=== PATIENT | male | born 1995 | race Caucasian/White ===

== ENCOUNTER 2018-01-19 14:48 | Outpatient (CLI) | payer OTHER ==
--- NOTE | 2018-01-20 00:20 | Ultrasound Report ---
Procedure Date: 01/19/2018 Accession Number: [id number] / [id number] Procedure: US - Duplex Ext Veins Bilateral CPT Code: FULL RESULT: EXAM: BILATERAL LOWER EXTREMITY VENOUS ULTRASOUND EXAM DATE: 01/19/2018 03:00 PM. CLINICAL HISTORY: Localized edema,peripheral vascular disease, unspecified. COMPARISON: None. TECHNIQUE: Real-time sonographic vascular imaging was performed by the skilled nursing professional through the lower extremities utilizing both color-flow and Doppler spectral analysis. Multiple media sales representative static images were saved for review. FINDINGS: Right: Common Femoral Vein (CFV): Normal. CFV-GSV Junction: Normal. Profunda Femoral Vein (PFV): Normal. Femoral Vein (FV) Prox: Normal. Femoral Vein (FV) Mid: Normal. Femoral Vein (FV) Dist: Normal. Popliteal Vein: Normal. Posterior Tibial Veins: Normal. Peroneal Veins: Normal. Left: Common Femoral Vein (CFV): Normal. CFV-GSV Junction: Normal. Profunda Femoral Vein (PFV): Normal. Femoral Vein (FV) Prox: Normal. Femoral Vein (FV) Mid: Normal. Femoral Vein (FV) Dist: Normal. Popliteal Vein: Normal. Posterior Tibial Veins: Normal. Peroneal Veins: Normal. Other: Posterior tibial and peroneal veins not well seen. Study limited due to body habitus. IMPRESSION: 1. Suboptimal visualization of the bilateral posterior tibial peroneal veins. Limitations related to body habitus. 2. Given the limitations, no evidence for deep venous thrombosis. RADIA
== END 2018-01-19 14:49 | disposition home or self-care (01) ==
LOC: DI 14:48
PROVIDERS: ATTEND Family Medicine
DX: I73.9 Peripheral vascular disease, unspecified (principal); R60.0 Localized edema; E66.01 Morbid (severe) obesity due to excess calories
CPT/HCPCS: 93970

== ENCOUNTER 2018-03-19 15:29 | Outpatient (CLI) | payer OTHER | END 2018-03-19 15:30 | disposition home or self-care (01) | LOC: SC 15:29 | PROVIDERS: ATTEND Internal Medicine Pulmonary Disease | DX: G47.30 Sleep apnea, unspecified (principal); R51 Headache; G47.10 Hypersomnia, unspecified; R06.83 Snoring; E66.01 Morbid (severe) obesity due to excess calories; Z68.45 Body mass index [BMI] 70 or greater, adult | CPT/HCPCS: 99203; 99212 ==

== ENCOUNTER 2020-12-28 03:00 | Emergency (ER) | payer SELFPAY ==
[2020-12-28] MEDS ORDERED: cephALEXin 250 MG CAPSULE PO STA (03:14)
[2020-12-28] MEDS ORDERED: diphenhydrAMINE 25 MG CAPSULE PO STA (03:14)
[2020-12-28] MEDS ORDERED: CETIRIZINE 10 MG TABLET PO STA (03:14)
--- NOTE | 2020-12-28 03:15 | ED Physician Documentation ---
PD HPI SKIN - Stated complaint Stated Complaint: CHILLS/RASH ON LEG - History obtained from History obtained from: Patient - History of Present Illness Timing - onset: Today Timing - details: Abrupt onset, Still present Location: RLE (he has had some itching on lower legs and has few small scratch reynolds. This morning awoke with redness and swelling right lower leg/calf. Feeling of chills. Denies URI symptoms. He states yesterday he did have some chest pressure but not now.) Quality / character: Painful, Discolored (redness in area of medial lower leg and calf. No edema noted in leg generally though is very obese and hard to tell.), Swelling. No: Draining Associated symptoms: No: Fever (but has feeling of chills this morning), Myalgi as, N/V/D Contributing factors: No: Insect bite /sting, Recent illness Similar symptoms before: Diagnosis (has had cellulitis of lower legs in the pas t.) Review of Systems Constitutional: reports: Chills. denies: Fever Nose: denies: Rhinorrhea / runny nose, Congestion Throat: denies: Sore throat Cardiac: reports: Chest pain / pressure (tightness feeling yesterday for part of the day). denies: Palpitations Respiratory: denies: Dyspnea, Cough GI: denies: Abdominal Pain, Nausea, Vomiting, Diarrhea Skin: reports: Abrasion (s) (several small scratch reynolds lower legs from itching.) PD PAST MEDICAL HISTORY - Past Medical History Cardiovascular: None Respiratory: None Neuro: None Endocrine/Autoimmune: None Musculoskeletal: Other (markedly obese) - Present Medications Home Medications: Ambulatory Orders Medication Instructions Recorded Confirmed Ibuprofen [Motrin] 600 mg PO TID PRN #25 tab 12/28/20 cephALEXin [Keflex] 1,000 mg PO TID 5 Days #30 cap 12/28/20 - Allergies Allergies/Adverse Reactions: Allergies Allergy/AdvReac Type Severity Reaction Status Date / Time malena seeds Allergy Anaphylaxis Uncoded 12/28/20 03:14 PD ED PE NORMAL - Vitals Vital signs reviewed: Yes - General General: Alert and oriented X 3, No acute distress, Well developed/nourished - Cardiac Cardiac: RRR, No murmur - Respiratory Respiratory: No respiratory distress, Clear bilaterally - Derm Derm: Normal color, Warm and dry - Extremities Extremities: Other (right anteromedial to posterior mid calf with area of warmth, redness, mild tender. Small scratch reynolds on anterior lower leg but not in the area of the redness per se. The obese skin is lifted to inspect all the folds and no excoriation nor skin breakdown is seen. ) - Neuro Neuro: Alert and oriented X 3, No motor deficit, No sensory deficit, Normal speech Results - Vitals Vitals: Vital Signs - 24 hr 12/28/20 12/28/20 12/28/20 03:06 04:27 04:35 Temperature 36.9 C 37.7 C Heart Rate 125 H 106 H Respiratory 28 H 24 Rate Blood Pressure 142/73 H 153/75 H O2 Saturation 99 99 Oxygen O2 Source Room air - EKG (time done) 03:24 Rate: Rate (enter#) (115) Rhythm: Sinus tachycardia [place]: Normal Intervals: Normal [place] QRS: Normal Ischemia: Normal ST segments. No: ST elevation c/w ischemia, ST depression - Labs Labs: Laboratory Tests 12/28/20 12/28/20 12/28/20 03:50 03:50 03:50 WBC 14.2 H RBC 4.34 L Hgb 11.8 L Hct 37.7 L MCV 86.9 MCH 27.2 MCHC 31.3 L RDW 14.1 Plt Count 270 MPV 9.1 Neut # (Auto) 12.1 H Lymph # (Auto) 1.4 L [place] # (Auto) 0.5 Eos # (Auto) 0.1 Baso # (Auto) 0.1 Absolute Nucleated RBC 0.00 Nucleated RBC % 0.0 Sodium 134 L Potassium 3.9 Chloride 100 L Carbon Dioxide 24 Anion Gap 10.0 BUN 16 Creatinine 0.8 Estimated GFR (MDRD) 117 Glucose 136 H Calcium 8.7 Total Bilirubin 0.8 AST 22 ALT 30 Alkaline Phosphatase 36 L Total Creatine Kinase 98 Troponin I High Sens 3.3 B-Natriuretic Peptide Total Protein 7.3 Albumin 3.7 Globulin 3.6 Albumin/Globulin Ratio 1.0 Lipase 24 12/28/20 03:50 WBC RBC Hgb Hct MCV MCH MCHC RDW Plt Count MPV Neut # (Auto) Lymph # (Auto) [place] # (Auto) Eos # (Auto) Baso # (Auto) Absolute Nucleated RBC Nucleated RBC % Sodium Potassium Chloride Carbon Dioxide Anion Gap BUN Creatinine Estimated GFR (MDRD) Glucose Calcium Total Bilirubin AST ALT Alkaline Phosphatase Total Creatine Kinase Troponin I High Sens B-Natriuretic Peptide 20 Total Protein Albumin Globulin Albumin/Globulin Ratio Lipase - Rads (name of study) chest xray Radiology: Prelim report reviewed (no acute process), See rad report PD MEDICAL DECISION MAKING - ED course Complexity details: reviewed results (He had had some chest pressure yesterday and was concerned. No signs of pneumonia, nor heart related. Has chills this morning with redness lower leg skin. Consider chills being unrelated infection rather than from the cellulitis. The leg does not seem out of proportionate pain/swelling.), re-evaluated patient (he is given 1 g dose of Keflex to compensate for body size. Had some chest tightness but not pleuritic nor dyspnea. calf redness anteromedial, with surface tender, and does not have DVT character. ), considered differential (skin redness and local warmth/tender c/w cellulitis. Mild elevated WBC. Normal CK so no signs of muscle layer extension. Some tachycardia initially, decreased to 106, so still some tachy. Not sure what his baseline is. The area leg redness appears cellulitic, not deeper. ), d/w patient Departure - Departure Disposition: 01 Home, Self Care Clinical Impression: Lower extremity cellulitis Qualifiers: Laterality: right Qualified Code(s): L03.115 - Cellulitis of right lower limb Chest pain Qualifiers: Chest pain type: unspecified Qualified Code(s): R07.9 - Chest pain, unspecified Condition: Stable Record reviewed to determine appropriate education?: Yes Instructions: ED Infec Skin Cellulitis Prescriptions: cephALEXin [Keflex] 1,000 mg PO TID 5 Days #30 cap Ibuprofen [Motrin] 600 mg PO TID PRN #25 tab PRN Reason: Pain Comments: The redness and swelling along with your symptoms of feeling chilled and having an elevated white count suggest an infectious process. Use cephalexin 2 tablets 3 times a day for the next 5 days. Warm towels or compresses or soaks for the lower leg periodically to improve blood flow to the area. Ibuprofen 3 times a day for inflammation and pain. To that add Tylenol if needed. Recheck if not improved well over the next 2 to 3 days and return to the ER if worsening general symptoms. The prescriptions were sent to [facility]. Discharge Date/Time: 12/28/20 04:58
[2020-12-28 03:57] LABS: BASOPHILS # (AUTO) 0.1 10^3/uL (0.0-0.1); BASOPHILS % (AUTO) 0.4 %; EOSINOPHILS # (AUTO) 0.1 10^3/uL (0.0-0.7); EOSINOPHILS % (AUTO) 0.8 %; HCT - HEMATOCRIT 37.7 % (42.0-52.0); HGB - HEMOGLOBIN 11.8 g/dL (14.0-18.0); LYMPHOCYTES # (AUTO) 1.4 10^3/uL (1.5-3.5); LYMPHOCYTES % (AUTO) 9.6 %; MEAN CORPUSCULAR HEMOGLOBIN 27.2 pg (27.0-31.0); MEAN CORPUSCULAR HGB CONC 31.3 g/dL (32.0-36.0); MEAN CORPUSCULAR VOLUME 86.9 fL (80.0-94.0); MEAN PLATELET VOLUME 9.1 fL (7.4-11.4); MONOCYTES # (AUTO) 0.5 10^3/uL (0.0-1.0); MONOCYTES % (AUTO) 3.5 %; NEUTROPHILS # (AUTO) 12.1 10^3/uL (1.5-6.6); NEUTROPHILS % (AUTO) 85.2 %; PLT - PLATELET COUNT 270 10^3/uL (130-450); RED BLOOD COUNT 4.34 10^6/uL (4.70-6.10); RED CELL DISTRIBUTION WIDTH 14.1 % (12.0-15.0); WHITE BLOOD COUNT 14.2 x10^3/uL (4.8-10.8)
[2020-12-28 04:10] LABS: ALBUMIN 3.7 g/dL (3.2-5.5); BILIRUBIN,TOTAL 0.8 mg/dL (0.2-1.0); CREATININE 0.8 mg/dL (0.6-1.2); TOTAL PROTEIN 7.3 g/dL (6.7-8.2)
[2020-12-28 04:14] LABS: CALCIUM 8.7 mg/dL (8.5-10.3); POTASSIUM 3.9 mmol/L (3.5-5.0)
[2020-12-28 04:28] VITALS: BP 153/75
[2020-12-28] MEDS ORDERED: HYDROcod/ACETAM 5/325 MG TABLET PO STA (04:43)
[2020-12-28] MEDS ORDERED: IBUPROFEN 600 MG TABLET PO STA (04:43)
--- NOTE | 2020-12-28 08:06 | XRAY Report ---
PROCEDURE: Chest 1 View X-Ray INDICATIONS: Chest pain TECHNIQUE: One view of the chest was acquired. COMPARISON: None FINDINGS: Surgical changes and devices: None. Lungs and pleura: No pleural effusions or pneumothorax. Lungs are clear. Mediastinum: Mediastinal contours appear normal. Heart size is normal. Bones and chest wall: No suspicious bony lesions. Overlying soft tissues appear unremarkable. IMPRESSION: No acute cardiopulmonary process demonstrated radiographically. No significant change from preliminar y report. Reviewed by: Johnny Bell MD on 12/28/2020 8:05 AM PDT Approved by: Johnny Bell MD on 12/28/2020 8:05 AM PDT Station ID: [id number]
== END 2020-12-28 04:58 | disposition home or self-care (01) ==
LOC: ED 03:00
DX: L03.115 Cellulitis of right lower limb (principal); R07.89 Other chest pain; R00.0 Tachycardia, unspecified; E66.9 Obesity, unspecified; Z68.45 Body mass index [BMI] 70 or greater, adult
CPT/HCPCS: 36415; 71045; 80053; 82550; 83690; 83880; 84484; 85025; 93005; 99284; A9270

== ENCOUNTER 2021-01-03 18:36 | Inpatient (IN) | payer BC ==
[2021-01-03 19:33] LABS: BASOPHILS # (AUTO) 0.1 10^3/uL (0.0-0.1); BASOPHILS % (AUTO) 0.4 %; EOSINOPHILS # (AUTO) 0.1 10^3/uL (0.0-0.7); EOSINOPHILS % (AUTO) 0.3 %; HCT - HEMATOCRIT 37.7 % (42.0-52.0); HGB - HEMOGLOBIN 12.1 g/dL (14.0-18.0); LYMPHOCYTES % (AUTO) 5.2 %; MEAN CORPUSCULAR HEMOGLOBIN 27.4 pg (27.0-31.0); MEAN CORPUSCULAR HGB CONC 32.1 g/dL (32.0-36.0); MEAN CORPUSCULAR VOLUME 85.3 fL (80.0-94.0); MEAN PLATELET VOLUME 8.9 fL (7.4-11.4); MONOCYTES # (AUTO) 0.4 10^3/uL (0.0-1.0); NEUTROPHILS # (AUTO) 17.8 10^3/uL (1.5-6.6); NEUTROPHILS % (AUTO) 91.4 %; PLT - PLATELET COUNT 339 10^3/uL (130-450); RED BLOOD COUNT 4.42 10^6/uL (4.70-6.10); RED CELL DISTRIBUTION WIDTH 13.7 % (12.0-15.0); WHITE BLOOD COUNT 19.5 x10^3/uL (4.8-10.8)
[2021-01-03 19:37] LABS: INR 1.3 (0.8-1.2); PT - PROTHROMBIN TIME 14.4 secs (9.9-12.6)
[2021-01-03 19:44] LABS: ALBUMIN 3.5 g/dL (3.2-5.5); ALBUMIN/GLOBULIN RATIO 0.9 (1.0-2.2); BILIRUBIN,TOTAL 0.9 mg/dL (0.2-1.0); POTASSIUM 3.9 mmol/L (3.5-5.0); TOTAL PROTEIN 7.5 g/dL (6.7-8.2)
[2021-01-03 19:45] LABS: PARTIAL THROMBOPLASTIN TIME 30.6 secs (24.9-33.3)
--- NOTE | 2021-01-03 20:42 | ED Physician Documentation ---
History of Present Illness - Stated complaint Stated Complaint: R LEG PX - Chief complaint Chief Complaint: Ext Problem - History obtained from History obtained from: Patient, Family - History of Present Illness Timing: How many weeks ago (1) Pain level max: 5 Pain level now: 5 - Additonal information Additional information: 25-year-old male presents to the emergency department the redness and swelling to the right lower extremity x1 week. He was placed on Keflex for 5 days, the redness did start to improve, but has now worsened again. Temperature of 102 at home. He has having pain throughout the leg as well. Does not recall any specific injury, however this did start after he was swimming in a pool. Review of Systems Constitutional: denies: Fever, Chills Cardiac: denies: Chest pain / pressure GI: denies: Vomiting, Diarrhea Skin: denies: Rash Musculoskeletal: denies: Neck pain, Back pain Neurologic: reports: Headache (Gradual onset, holoacranial). denies: Focal weakness, Numbness PD PAST MEDICAL HISTORY - Past Medical History Cardiovascular: None Respiratory: None Neuro: None Endocrine/Autoimmune: None Musculoskeletal: Other (markedly obese) - Past Surgical History Past Surgical History: No - Present Medications Home Medications: Ambulatory Orders Medication Instructions Recorded Confirmed No Known Home Medications 01/03/21 01/03/21 - Allergies Allergies/Adverse Reactions: Allergies Allergy/AdvReac Type Severity Reaction Status Date / Time malena seeds Allergy Anaphylaxis Uncoded 01/03/21 18:50 - Social History Does the pt smoke?: No Smoking Status: Never smoker Does the pt drink ETOH?: No Does the pt have substance abuse?: No - Immunizations Immunizations are current?: Yes - POLST Patient has POLST: No PD ED PE NORMAL - Vitals Vital signs reviewed: Yes - General General: Alert and oriented X 3, No acute distress, Other (Super morbidly obese) - HEENT HEENT: PERRL, Moist mucous membranes, Pharynx benign - Neck Neck: Supple, no meningeal sign - Cardiac Cardiac: RRR - Respiratory Respiratory: No respiratory distress, Clear bilaterally - Abdomen Abdomen: Soft, Non tender, Non distended - Derm Derm: Warm and dry - Extremities Extremities: Other (Swelling to the bilateral lower extremities, right greater than left. RLE - erythema from the posterior superior thigh down to the ankle. The foot does not appear swollen and erythematous. There is no drainable abscess. No drainage. Neurovascular intact) - Neuro Neuro: Alert and oriented X 3 - Psych Psych: Normal mood, Normal affect Results - Vitals Vitals: Vital Signs - 24 hr 01/03/21 01/03/21 01/03/21 18:50 19:22 20:48 Temperature 36.5 C 38.9 C H 37 C Heart Rate 120 H 104 H Respiratory 20 18 Rate Blood Pressure 146/85 H 131/74 H O2 Saturation 96 100 Oxygen O2 Source Room air - Labs Labs: Laboratory Tests 01/03/21 01/03/21 01/03/21 19:26 19:26 19:26 WBC 19.5 H RBC 4.42 L Hgb 12.1 L Hct 37.7 L MCV 85.3 MCH 27.4 MCHC 32.1 RDW 13.7 Plt Count 339 MPV 8.9 Neut # (Auto) 17.8 H Lymph # (Auto) 1.0 L [place] # (Auto) 0.4 Eos # (Auto) 0.1 Baso # (Auto) 0.1 Absolute Nucleated RBC 0.00 Nucleated RBC % 0.0 PT 14.4 H INR 1.3 H APTT 30.6 Sodium 135 Potassium 3.9 Chloride 99 L Carbon Dioxide 26 Anion Gap 10.0 BUN 14 Creatinine 1.0 Estimated GFR (MDRD) 90 Glucose 129 H Lactic Acid Calcium 9.0 Total Bilirubin 0.9 AST 23 ALT 37 Alkaline Phosphatase 33 L Total Protein 7.5 Albumin 3.5 Globulin 4.0 Albumin/Globulin Ratio 0.9 L Lipase 26 Nasal Adenovirus (PCR) Nasal B. parapertussis DNA (PCR) Nasal Coronavir 229E PCR Nasal Coronavir HKU1 PCR Nasal Coronavir NL63 PCR Nasal Coronavir OC43 PCR Nasal Enterovir/Rhinovir PCR Nasal Influenza B PCR Nasal Influenza A PCR Nasal Parainfluen 1 PCR Nasal Parainfluen 2 PCR Nasal Parainfluen 3 PCR Nasal Parainfluen 4 PCR Nasal RSV (PCR) Nasal B.pertussis DNA PCR Nasal C.pneumoniae (PCR) Sunil Human Metapneumo PCR Nasal M.pneumoniae (PCR) Nasal SARS-CoV-2 (PCR) 01/03/21 01/03/21 19:26 21:10 WBC RBC Hgb Hct MCV MCH MCHC RDW Plt Count MPV Neut # (Auto) Lymph # (Auto) [place] # (Auto) Eos # (Auto) Baso # (Auto) Absolute Nucleated RBC Nucleated RBC % PT INR APTT Sodium Potassium Chloride Carbon Dioxide Anion Gap BUN Creatinine Estimated GFR (MDRD) Glucose Lactic Acid 1.3 Calcium Total Bilirubin AST ALT Alkaline Phosphatase Total Protein Albumin Globulin Albumin/Globulin Ratio Lipase Nasal Adenovirus (PCR) NOT DETECTED Nasal B. parapertussis DNA (PCR) NOT DETECTED Nasal Coronavir 229E PCR NOT DETECTED Nasal Coronavir HKU1 PCR NOT DETECTED Nasal Coronavir NL63 PCR NOT DETECTED Nasal Coronavir OC43 PCR NOT DETECTED Nasal Enterovir/Rhinovir PCR NOT DETECTED Nasal Influenza B PCR NOT DETECTED Nasal Influenza A PCR NOT DETECTED Nasal Parainfluen 1 PCR NOT DETECTED Nasal Parainfluen 2 PCR NOT DETECTED Nasal Parainfluen 3 PCR NOT DETECTED Nasal Parainfluen 4 PCR NOT DETECTED Nasal RSV (PCR) NOT DETECTED Nasal B.pertussis DNA PCR NOT DETECTED Nasal C.pneumoniae (PCR) NOT DETECTED Sunil Human Metapneumo PCR NOT DETECTED Nasal M.pneumoniae (PCR) NOT DETECTED Nasal SARS-CoV-2 (PCR) NOT DETECTED PD MEDICAL DECISION MAKING - ED course Complexity details: reviewed results, re-evaluated patient, considered darin antonio, d/w patient ED course: Patient with significant cellulitis of the right lower extremity. Febrile, tachycardic, leukocytosis. Initial white blood cell count was 14 at his last visit, over 19 today. Blood cultures drawn. Lactate drawn. No hypotension. He was given IV fluids. 30 mL/kg were not given as there was no hypotension and due to his body mass. Given IV antibiotics. Discussed the case with Dr. Loja, hospitalist who accepts This document was made in part using voice recognition software. While efforts are made to proofread this document, sound alike and grammatical errors may occur. Departure - Departure Disposition: [facility] DC/Xfer Clinical Impression: Fever Qualifiers: Fever type: unspecified Qualified Code(s): R50.9 - Fever, unspecified Cellulitis Qualifiers: Site of cellulitis: extremity Site of cellulitis of extremity: lower extremity Laterality: right Qualified Code(s): L03.115 - Cellulitis of right lower limb Sepsis Qualifiers: Sepsis type: sepsis due to unspecified organism Sepsis acute organ dysfunction status: unspecified Qualified Code(s): A41.9 - Sepsis, unspecified organism Condition: Good Discharge Date/Time: 01/03/21 21:52
[2021-01-03] MEDS ORDERED: VANCOMYCIN IV STA (20:43)
[2021-01-03] MEDS ORDERED: AMPICILLIN/SULBACTAM 3 GM in SODIUM CHLORIDE 0.9% MINIBAG 100 ML IV STA (20:43)
[2021-01-03] MEDS ORDERED: SODIUM CHLORIDE 0.9% IV STA (20:43)
[2021-01-03] MEDS ORDERED: HYDROmorphone 1 MG/ML CARPUJECT IVP STA (21:11)
[2021-01-03] MEDS ORDERED: ONDANSETRON 4 MG/2 ML VIAL IVP PRN (21:11)
[2021-01-03] MEDS ORDERED: SODIUM CHLORIDE FLUSH 0.9% 10 ML SYRINGE IVP PRN (21:11)
--- NOTE | 2021-01-03 21:18 | HISTORY & PHYSICAL EXAMINATION ---
Chief Complaint - Chief Complaint Chief Complaint: Leg pain, fever and spreading leg redness History of Present Illness - Admitted From Admitted From:: ED - History Obtained From History obtained from: ED provider and patient - History of Present Illness HPI Comment/Other: This is a 25-year-old white male with history of morbid obesity (weight > 500 lbs, BMI is 85), who developed Right leg redness and swelling after swimming in a community pool and hot tub. He came to this ER 1 week ago with complaints of 2 days of right leg swelling and redness and was diagnosed with cellulitis and discharged from the ED on Keflex. The area got better and he finished his 5-day course of Keflex. One day later, the redness started spreading again and he has had fever spikes daily as high as 102 F. He presented to the ED again today with the complaint of worsening symptoms and today is found to have elevated white count of 20, is tachycardic with a heart rate of 120, has normal lactic acid level and normal blood pressure. He is being admitted for management of worsening cellulitis, failing outpatient Keflex oral therapy. He received Unasyn IV and vancomycin IV in the ED. History - Past Medical History Cardiovascular: reports: None Respiratory: reports: None Neuro: reports: None Endocrine/Autoimmune: reports: None Musculoskeletal: reports: Other (markedly obese) Derm: reports: Other (Leg edema for years, treated with Lasix until it ran out and he has not had a PCP for 2 years.) Other Past Medical History: Cellulitis at age 11. Morbid obesity since childhood. - Family & Social History Family History: Mother: Alive and Well, Father: Alive and Well, Diabetes, Type 2, Obesity, Sister: Alive and Well, Obesity, Brother: Alive and Well, Obesity Living arrangement: At home Living Situation: With spouse/s.o. (He lives with his fiancee) Social History Notes: He never smoked cigarettes, hardly drinks any alcohol, and no history of drug use. 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 - Substance History Use: Uses substance without health or social issues: NONE - POLST Patient has POLST: No Meds/Allgy - Home Medications Home Medications: Ambulatory Orders Medication Instructions Recorded Confirmed No Known Home Medications 01/03/21 01/03/21 - Allergies Allergies/Adverse Reactions: Allergies Allergy/AdvReac Type Severity Reaction Status Date / Time malena seeds Allergy Anaphylaxis Uncoded 01/03/21 18:50 Review of Systems - Constitutional Constitutional: reports: Fever - Integumentary Integumentary: reports: Other (swelling and redness of R leg. Skin of shins will occaisionally weep fluid for years.) - Neurological Neurological: reports: Headache (today) - All Other Systems All Other Systems: reports: Reviewed and negative Exam - Vital Signs Reviewed Vital Signs: Yes Vital Signs: Vital Signs x48h Temp Pulse Resp BP Pulse Ox 01/03/21 20:48 37 C 104 H 18 131/74 H 100 01/03/21 19:22 38.9 C H 01/03/21 18:50 36.5 C 120 H 20 146/85 H 96 - Physical Exam General Appearance: positive: No acute distress, Alert, Other (Morbidly obese) Eyes Bilateral: positive: Normal inspection, EOMI ENT: positive: ENT inspection nml, No signs of dehydration Neck: positive: Nml inspection (Cannot evaluate neck due to morbid obesity) Cardiovascular: positive: Regular rate & rhythm, No murmur (Distant heart sounds due to morbid obesity) Abdomen: positive: Non-tender, Nml bowel sounds, Other (Obese with pannus) Skin: positive: Warm, Dry Extremities: positive: Other (3+ edema to groin. R martinez and medial thigh red and swollen) Neurologic/Psychiatric: positive: Oriented x3 (Non-focal.) Sepsis Event Note (H) - Evaluation Current Stage of Sepsis: Sepsis Possible source of Sepsis: positive: Skin/soft tissue - Sepsis Criteria Sepsis Criteria: Recorded Temperature greater than 38.3C or Less than 36C, Recorded Heart Rate greater than 90 bpm, WBC count greater than 12,000 or less than 4000 Conclusion/Plan - Problem List (1) Sepsis Conclusion/Plan: Will continue with IV fluids for the nexrt 24 hours. Continue with IV antibiotics using Unasyn and vancomycin. Outline the area and follow its progression on the right leg. Await blood culture results. Follow CBC daily. Qualifiers: Sepsis type: sepsis due to unspecified organism Sepsis acute organ dysfunction status: unspecified Qualified Code(s): A41.9 - Sepsis, unspecified organism (2) Lower extremity cellulitis Conclusion/Plan: He thinks a skin opening occurred initially when he was in the hot tub. Also, due to chronic longstanding leg edema, he gets "skin openings" when the legs sometimes ooze liquid. We will continue with IV antibiotics, IV fluids, await blood culture results, outline the area and follow its progression, Follow ESR and WBC daily. Qualifiers: Laterality: right Qualified Code(s): L03.115 - Cellulitis of right lower limb (3) Morbid obesity with BMI of 70 and over, adult Conclusion/Plan: As per Hx. He reports his A1c has always been normal when tested. The patient admitted that he stopped dieting 2 years ago. He has now started going to the gym, walking daily and does intermittent fasting, eats between noon and 8pm only). (4) Leg edema Conclusion/Plan: Will resume his old dose of Lasix 20 mg daily and order leg elevation to help drain legs. Will obtain Echo (with Definity) to evaluate for Cor Pulmonale, which he may have from Obesity-Hypoventilation syndrome. - Lab Results Lab results reviewed: Yes Fish Bones: 01/03/21 19:26 01/03/21 19:26
[2021-01-03] MEDS ORDERED: SODIUM CHLORIDE 0.9% 1,000 ML IV SCH (22:00)
[2021-01-03 22:12] LABS: B. PARAPERTUSSIS- RESP PCR PAN NOT DETECTED; B. PERTUSSIS- RESP PCR PANEL NOT DETECTED; C. PNEUMONIAE- RESP PCR PANEL NOT DETECTED; CORONAVIRUS 229E-RESP PCR NOT DETECTED; CORONAVIRUS HKU1-RESP PCR NOT DETECTED; CORONAVIRUS NL63-RESP PCR NOT DETECTED; CORONAVIRUS OC43-RESP PCR NOT DETECTED; HUMAN METAPNEUMOVIRUS NOT DETECTED; INFLUENZA A- RESP PCR PANEL NOT DETECTED; INFLUENZA B - RESP PCR PANEL NOT DETECTED; M. PNEUMONIAE- RESP PCR PANEL NOT DETECTED; PARAINFLUENZA VIRUS 1 NOT DETECTED; PARAINFLUENZA VIRUS 2 NOT DETECTED; PARAINFLUENZA VIRUS 3 NOT DETECTED; PARAINFLUENZA VIRUS 4 NOT DETECTED; RHINOVIRUS/ENTEROVIRUS NOT DETECTED; RSV- RESP PCR PANEL NOT DETECTED; SARS-CoV-2 -RESP PCR PANEL NOT DETECTED
[2021-01-03] MEDS ORDERED: VANCOMYCIN INJ 3 GM in SODIUM CHLORIDE 0.9% 500 ML IV ONE (23:00)
[2021-01-03] MEDS: AMPICILLIN/SULBACTAM 3 GM in SODIUM CHLORIDE 0.9% MINIBAG 100 ML IV SCH (23:27)
[2021-01-03] MEDS: IBUPROFEN 600 MG TABLET PO PRN (23:29)
[2021-01-04 00:56] LABS: BILIRUBIN,URINE NEGATIVE (NEGATIVE); GLUCOSE, URINE (UA) NEGATIVE (NEGATIVE); KETONES,URINE (UA) NEGATIVE (NEGATIVE); LEUKOCYTE ESTERASE, URINE NEGATIVE (NEGATIVE); NITRITE,URINE NEGATIVE (NEGATIVE); OCCULT BLOOD,URINE NEGATIVE (NEGATIVE); PROTEIN,URINE NEGATIVE (NEGATIVE); UROBILINOGEN,URINE 0.2 (NORMAL) E.U./dL (NORMAL)
[2021-01-04 00:59] LABS: CLARITY,URINE CLEAR (CLEAR)
[2021-01-04] MEDS: SODIUM CHLORIDE FLUSH 0.9% 10 ML SYRINGE IVP SCH ×3 (01:13→17:22)
[2021-01-04 05:26] LABS: BASOPHILS % (AUTO) 0.3 %; EOSINOPHILS # (AUTO) 0.2 10^3/uL (0.0-0.7); EOSINOPHILS % (AUTO) 1.3 %; HCT - HEMATOCRIT 33.8 % (42.0-52.0); HGB - HEMOGLOBIN 10.6 g/dL (14.0-18.0); LYMPHOCYTES # (AUTO) 2.1 10^3/uL (1.5-3.5); MEAN CORPUSCULAR HGB CONC 31.4 g/dL (32.0-36.0); MEAN PLATELET VOLUME 9.2 fL (7.4-11.4); MONOCYTES # (AUTO) 0.7 10^3/uL (0.0-1.0); MONOCYTES % (AUTO) 4.8 %; NEUTROPHILS % (AUTO) 77.8 %; PLT - PLATELET COUNT 280 10^3/uL (130-450); RED BLOOD COUNT 3.93 10^6/uL (4.70-6.10); WHITE BLOOD COUNT 14.1 x10^3/uL (4.8-10.8)
[2021-01-04 05:34] LABS: CALCIUM 8.6 mg/dL (8.5-10.3); CREATININE 0.9 mg/dL (0.6-1.2); POTASSIUM 3.6 mmol/L (3.5-5.0)
[2021-01-04] MEDS: AMPICILLIN/SULBACTAM 3 GM in SODIUM CHLORIDE 0.9% MINIBAG 100 ML IV SCH ×3 (05:43→17:58)
[2021-01-04] MEDS: FUROSEMIDE 20 MG TABLET PO SCH (08:34)
[2021-01-04] MEDS: ACETAMINOPHEN 325 MG TABLET PO PRN ×2 (08:34→15:42)
[2021-01-04] MEDS: HYDROmorphone 0.5 MG/0.5 ML SYRINGE IVP PRN ×3 (08:34→17:26)
[2021-01-04] MEDS ORDERED: ENOXAPARIN 40 MG/0.4 ML SYRINGE SUBQ SCH (09:00)
[2021-01-04] MEDS ORDERED: VANCOMYCIN INJ 2 GM in SODIUM CHLORIDE 0.9% 500 ML IV ONE (10:00)
[2021-01-04 10:35] LABS: ESTIMATED AVERAGE GLUCOSE 123 mg/dL (70-100); HEMOGLOBIN A1c% 5.9 % (4.27-6.07)
[2021-01-04] MEDS: ENOXAPARIN 40 MG/0.4 ML SYRINGE SUBQ SCH ×2 (10:44→21:32)
--- NOTE | 2021-01-04 12:43 | PHARMACY PROGRESS NOTE ---
- Therapy Status Therapy status: Awaiting steady state Basis for treatment: Empirical (Failed outpatient treatment with Keflex) Treatment indication: Sepsis, cellulitis Trough goal: 15-20 Concurrent antibiotics: Unasyn 3 gm IV q6h - PRATIK Risk Risk level for Acute Kidney Injury: High Acute Kidney Injury risk factors: Wt >100kg or BMI >40, Goal trough >15, Total daily Vancomycin >4 grams, Sepsis - Monitoring and Recommendation Clinical response to treatment: I&O Previous 24 hours 01/02/21 01/03/21 01/04/21 23:59 23:59 23:59 Intake Total 100 2607 Output Total 0 400 Balance 100 2207 Lab Results 01/04/21 01/04/21 01/03/21 05:11 05:11 19:26 ESR 59 H BUN 15 14 Creatinine 0.9 1.0 Estimated GFR (MDRD) 102 90 Monitoring plan: Daily serum creatinine, Draw trough early (Given patient's BMI, will draw an early trough prior to 2nd maintenance dose to ensure level is not supratherapeutic. Then plan for true maintenance trough tomorrow.), Suggest ongoing fluid replacement Next trough due (date/time): 01/04 at 1730 Areas for additional monitoring: IV to PO when appropriate, Therapy de- escalation based on culture results
--- NOTE | 2021-01-04 14:24 | PROVIDER PROGRESS NOTE ---
Assessment/Plan - Problem List (1) Sepsis Qualifiers: Sepsis type: sepsis due to unspecified organism Sepsis acute organ dysfunction status: unspecified Qualified Code(s): A41.9 - Sepsis, unspecified organism Assessment/Plan: 01/04 Patient present fever, tachycardia, significantly elevated WBC at admission with right lower extremity cellulitis. Improved, erythema is a slightly reduce, warmth is significantly reduce, WBC reduce, tachycardia is resolved. We will continue antibiotics Unasyn and vancomycin, blood culture is pending. Add probiotics. Continue laboratory and vital signs monitor (2) Lower extremity cellulitis Conclusion/Plan: 01/04, There is no open skin injury now After assessment. Erythema, warmness, swelling are all reduced, WBC is reduced. We will continue with antibiotics. Encourage patient safely walk (3) Morbid obesity with BMI of 70 and over, adult Conclusion/Plan: As per Hx. Encourage patient continue lost of weight and safely walk, And exercise as tolerated. A1c is at normal arrange. (4) Lymphedema Conclusion/Plan: This is patient chronic condition. Encourage patient continue lost of weight and safely walk, And exercise as tolerated. Will obtain Echo (with Definity) to evaluate for Cor Pulmonale, which he may have from Obesity-Hypoventilation syndrome. - Current Meds Current Meds: Current Medications Generic Name Dose Route Start Last Admin Trade Name Freq PRN Reason Stop Dose Admin Acetaminophen 650 mg 01/03/21 21:15 01/04/21 08:34 Acetaminophen 325 Mg Tablet PO 650 mg Q4HR PRN Administration Pain or Fever > 38C (100.4F) Enoxaparin Sodium 40 mg 01/04/21 10:05 01/04/21 10:44 Enoxaparin 40 Mg/0.4 Ml Syringe SUBQ 40 mg Q12H CORNELIA Administration Furosemide 20 mg 01/04/21 09:00 01/04/21 08:34 Furosemide 20 Mg Tablet PO 20 mg DAILY CORNELIA Administration Hydromorphone HCl 0.5 mg 01/03/21 21:11 01/04/21 13:28 Hydromorphone 0.5 Mg/0.5 Ml Syringe IVP 0.5 mg Q8H PRN Administration Pain 8 to 10 Sodium Chloride 1,000 mls @ 60 mls/hr 01/03/21 22:00 01/04/21 13:51 Normal Saline 0.9% IV 01/04/21 14:39 60 mls/hr .[id number] CORNELIA Infusion Ampicillin Sodium/Sulbactam 100 mls @ 200 mls/hr 01/04/21 00:00 01/04/21 13:57 Sodium 3 gm/ Sodium Chloride IV Infused Q6HR CORNELIA Infusion Ibuprofen 600 mg 01/03/21 23:09 01/03/21 23:29 Ibuprofen 600 Mg Tablet PO 600 mg Q6HR PRN Administration HEADACHE Sodium Chloride 10 ml 01/04/21 01:00 01/04/21 08:34 Sodium Chloride Flush 0.9% 10 Ml Syringe IVP Not Given 0100,0900,1700 CORNELIA - Lab Result Fish Bone Diagrams: 01/04/21 05:11 01/04/21 05:11 - Additional Planning My Orders: My Active Orders 01/04/21 17:00 Saccharomyces Boulardii [Florastor] 250 mg PO BIDWM Subjective - Subjective Patient Reports: Feeling Better Objective Vital Signs: Vital Signs - 24 hr 01/03/21 01/03/21 01/03/21 18:50 19:22 20:48 Temperature 36.5 C 38.9 C H 37 C Heart Rate 120 H 104 H Heart Rate [ Brachial] Respiratory 20 18 Rate Blood Pressure 146/85 H 131/74 H Blood Pressure [Right Radial artery] O2 Saturation 96 100 01/03/21 01/03/21 01/03/21 21:51 22:09 23:49 Temperature 36.8 C 37.1 C Heart Rate 101 H Heart Rate [ 116 H 108 H Brachial] Respiratory 16 20 20 Rate Blood Pressure 114/61 Blood Pressure 132/61 H 131/61 H [Right Radial artery] O2 Saturation 99 99 97 01/04/21 08:00 Temperature 36.3 C L Heart Rate Heart Rate [ 78 Brachial] Respiratory 18 Rate Blood Pressure Blood Pressure 109/55 L [Right Radial artery] O2 Saturation 99 Oxygen O2 Source Room air I&O (Last 24 Hrs): Intake and Output Totals x24h 01/02/21 01/03/21 01/04/21 23:59 23:59 23:59 Intake Total 100 3427 Output Total 0 400 Balance 100 3027 General: Alert, Oriented x3, Cooperative, No acute distress HEENT: Atraumatic Neck: Supple Lymphatic: no adenopathy Neuro: Alert, Non Focal, Oriented Times 3 Cardiovascular: Regular rate, Normal S1, Normal S2 Respiratory: Chest non-tender, No respiratory distress Abdomen: Normal bowel sounds, Soft Extremities: Normal pulses, Other (Bilateral lower extremity with lymphedema. Right lower extremity with erythema, slightly warmth, slightly swelling. No calf tenderness or pain) - Results Results: Laboratory Results WBC 14.1 x10^3/uL (4.8-10.8) H 01/04/21 05:11 RBC 3.93 10^6/uL (4.70-6.10) L 01/04/21 05:11 Hgb 10.6 g/dL (14.0-18.0) L 01/04/21 05:11 Hct 33.8 % (42.0-52.0) L 01/04/21 05:11 MCV 86.0 fL (80.0-94.0) 01/04/21 05:11 MCH 27.0 pg (27.0-31.0) 01/04/21 05:11 MCHC 31.4 g/dL (32.0-36.0) L 01/04/21 05:11 RDW 14.0 % (12.0-15.0) 01/04/21 05:11 Plt Count 280 10^3/uL (130-450) 01/04/21 05:11 MPV 9.2 fL (7.4-11.4) 01/04/21 05:11 Neut # (Auto) 11.0 10^3/uL (1.5-6.6) H 01/04/21 05:11 Lymph # (Auto) 2.1 10^3/uL (1.5-3.5) 01/04/21 05:11 [place] # (Auto) 0.7 10^3/uL (0.0-1.0) 01/04/21 05:11 Eos # (Auto) 0.2 10^3/uL (0.0-0.7) 01/04/21 05:11 Baso # (Auto) 0.0 10^3/uL (0.0-0.1) 01/04/21 05:11 Absolute Nucleated RBC 0.00 x10^3/uL 01/04/21 05:11 Nucleated RBC % 0.0 /100WBC 01/04/21 05:11 ESR 59 mm/Hr (0-15) H 01/04/21 05:11 PT 14.4 secs (9.9-12.6) H 01/03/21 19:26 INR 1.3 (0.8-1.2) H 01/03/21 19:26 APTT 30.6 secs (24.9-33.3) 01/03/21 19:26 Sodium 139 mmol/L (135-145) 01/04/21 05:11 Potassium 3.6 mmol/L (3.5-5.0) 01/04/21 05:11 Chloride 102 mmol/L (101-111) 01/04/21 05:11 Carbon Dioxide 25 mmol/L (21-32) 01/04/21 05:11 Anion Gap 12.0 (6-13) 01/04/21 05:11 BUN 15 mg/dL (6-20) 01/04/21 05:11 Creatinine 0.9 mg/dL (0.6-1.2) 01/04/21 05:11 Estimated GFR (MDRD) 102 (>89) 01/04/21 05:11 Glucose 137 mg/dL (70-100) H 01/04/21 05:11 Estimat Average Glucose 123 mg/dL (70-100) H 01/04/21 05:11 Hemoglobin A1c % 5.9 % (4.27-6.07) 01/04/21 05:11 Lactic Acid 1.3 mmol/L (0.5-2.2) 01/03/21 19:26 Calcium 8.6 mg/dL (8.5-10.3) 01/04/21 05:11 Total Bilirubin 0.9 mg/dL (0.2-1.0) 01/03/21 19:26 AST 23 IU/L (10-42) 01/03/21 19:26 ALT 37 IU/L (10-60) 01/03/21 19:26 Alkaline Phosphatase 33 IU/L (42-121) L 01/03/21 19:26 Total Protein 7.5 g/dL (6.7-8.2) 01/03/21 19:26 Albumin 3.5 g/dL (3.2-5.5) 01/03/21 19:26 Globulin 4.0 g/dL (2.1-4.2) 01/03/21 19:26 Albumin/Globulin Ratio 0.9 (1.0-2.2) L 01/03/21 19:26 Lipase 26 U/L (22-51) 01/03/21 19:26 Urine Color YELLOW 01/04/21 00:45 Urine Clarity CLEAR (CLEAR) 01/04/21 00:45 Urine pH 6.0 PH (5.0-7.5) 01/04/21 00:45 Ur Specific [place] 1.020 (1.002-1.030) 01/04/21 00:45 Urine Protein NEGATIVE mg/dL (NEGATIVE) 01/04/21 00:45 Urine Glucose (UA) NEGATIVE mg/dL (NEGATIVE) 01/04/21 00:45 Urine Ketones NEGATIVE mg/dL (NEGATIVE) 01/04/21 00:45 Urine Occult Blood NEGATIVE (NEGATIVE) 01/04/21 00:45 Urine Nitrite NEGATIVE (NEGATIVE) 01/04/21 00:45 Urine Bilirubin NEGATIVE (NEGATIVE) 01/04/21 00:45 Urine Urobilinogen 0.2 (NORMAL) E.U./dL (NORMAL) 01/04/21 00:45 Ur Leukocyte Esterase NEGATIVE (NEGATIVE) 01/04/21 00:45 Ur Microscopic Review NOT INDICATED 01/04/21 00:45 Urine Culture Comments NOT INDICATED 01/04/21 00:45 Nasal Adenovirus (PCR) NOT DETECTED 01/03/21 21:10 Nasal B. parapertussis DNA (PCR) NOT DETECTED 01/03/21 21:10 Nasal Coronavir 229E PCR NOT DETECTED 01/03/21 21:10 Nasal Coronavir HKU1 PCR NOT DETECTED 01/03/21 21:10 Nasal Coronavir NL63 PCR NOT DETECTED 01/03/21 21:10 Nasal Coronavir OC43 PCR NOT DETECTED 01/03/21 21:10 Nasal Enterovir/Rhinovir PCR NOT DETECTED 01/03/21 21:10 Nasal Influenza B PCR NOT DETECTED 01/03/21 21:10 Nasal Influenza A PCR NOT DETECTED 01/03/21 21:10 Nasal Parainfluen 1 PCR NOT DETECTED 01/03/21 21:10 Nasal Parainfluen 2 PCR NOT DETECTED 01/03/21 21:10 Nasal Parainfluen 3 PCR NOT DETECTED 01/03/21 21:10 Nasal Parainfluen 4 PCR NOT DETECTED 01/03/21 21:10 Nasal RSV (PCR) NOT DETECTED 01/03/21 21:10 Nasal B.pertussis DNA PCR NOT DETECTED 01/03/21 21:10 Nasal C.pneumoniae (PCR) NOT DETECTED 01/03/21 21:10 Sunil Human Metapneumo PCR NOT DETECTED 01/03/21 21:10 Nasal M.pneumoniae (PCR) NOT DETECTED 01/03/21 21:10 Nasal SARS-CoV-2 (PCR) NOT DETECTED 01/03/21 21:10 Sepsis Event Note (H) - Evaluation Current Stage of Sepsis: Sepsis Possible source of Sepsis: positive: Skin/soft tissue - Sepsis Criteria Sepsis Criteria: Recorded Temperature greater than 38.3C or Less than 36C, Recorded Heart Rate greater than 90 bpm, WBC count greater than 12,000 or less than 4000 ABX Reporting Has patient been on IV antibiotics over the past 48 hours?: Yes Current Medications - Current Medications Current Medications: Active Medications Acetaminophen (Acetaminophen 325 Mg Tablet) 650 mg PO Q4HR PRN PRN Reason: Pain or Fever > 38C (100.4F) Last Admin: 01/04/21 08:34 Dose: 650 mg Documented by: Enoxaparin Sodium (Enoxaparin 40 Mg/0.4 Ml Syringe) 40 mg SUBQ Q12H [facility] Last Admin: 01/04/21 10:44 Dose: 40 mg Documented by: Furosemide (Furosemide 20 Mg Tablet) 20 mg PO DAILY [facility] Last Admin: 01/04/21 08:34 Dose: 20 mg Documented by: Hydromorphone HCl (Hydromorphone 0.5 Mg/0.5 Ml Syringe) 0.5 mg IVP Q8H PRN PRN Reason: Pain 8 to 10 Last Admin: 01/04/21 13:28 Dose: 0.5 mg Documented by: Sodium Chloride (Normal Saline 0.9%) 1,000 mls @ 60 mls/hr IV .[id number] CORNELIA Stop: 01/04/21 14:39 Last Infusion: 01/04/21 13:51 Dose: 60 mls/hr Documented by: Ampicillin Sodium/Sulbactam (Sodium 3 gm/ Sodium Chloride) 100 mls @ 200 mls/hr IV Q6HR [facility] Last Infusion: 01/04/21 13:57 Dose: Infused Documented by: Ibuprofen (Ibuprofen 600 Mg Tablet) 600 mg PO Q6HR PRN PRN Reason: HEADACHE Last Admin: 01/03/21 23:29 Dose: 600 mg Documented by: Ondansetron HCl (Ondansetron 4 Mg/2 Ml Vial) 4 mg IVP Q6HR PRN PRN Reason: Nausea / Vomiting Saccharomyces Boulardii (Saccharomyces Boulardii 250 Mg Capsule) 250 mg PO BIDWM [facility] Sodium Chloride (Sodium Chloride Flush 0.9% 10 Ml Syringe) 10 ml IVP PRN PRN PRN Reason: NEEDED PER PROVIDER ORDERS Sodium Chloride (Sodium Chloride Flush 0.9% 10 Ml Syringe) 10 ml IVP 0100,0900,1700 CORNELIA Last Admin: 01/04/21 08:34 Dose: Not Given Documented by: Vancomycin HCl (Vancomycin: Pharmacy To Dose) 1 each ONCE PRN PRN Reason: PER PHARMACY No Known Home Medications 01/03/21
[2021-01-04] MEDS ORDERED: PERFLUTREN LIPID MICROSPHERES 1.65 MG/1.5 ML VIAL IVP ONE (15:09)
[2021-01-04] MEDS: SACCHAROMYCES BOULARDII 250 MG CAPSULE PO SCH (17:21)
[2021-01-04 17:33] LABS: VANCOMYCIN,TROUGH 16.1 ug/mL (10.0-20.0)
--- NOTE | 2021-01-04 17:52 | PHARMACY PROGRESS NOTE ---
- Therapy Status Therapy status: Awaiting steady state Basis for treatment: Empirical (Failed outpatient treatment with Keflex) Trough goal: 15-20 - PRATIK Risk Risk level for Acute Kidney Injury: High Acute Kidney Injury risk factors: Wt >100kg or BMI >40, Goal trough >15, Total daily Vancomycin >4 grams, Sepsis - Monitoring and Recommendation Clinical response to treatment: I&O Previous 24 hours 01/02/21 01/03/21 01/04/21 23:59 23:59 23:59 Intake Total 100 3427 Output Total 0 400 Balance 100 3027 Lab Results 01/04/21 01/04/21 01/03/21 05:11 05:11 19:26 ESR 59 H BUN 15 14 Creatinine 0.9 1.0 Estimated GFR (MDRD) 102 90 Vancomycin Monitoring 01/04/21 17:15 Vancomycin Trough 16.1 Monitoring plan: Daily serum creatinine, Suggest ongoing fluid replacement Next trough due (date/time): 01/05 @ 0930 Areas for additional monitoring: IV to PO when appropriate, Therapy de- escalation based on culture results Pharmacy recommendation: Decrease dose (Pt received LD of 3 gm and one 2 gm d ose. Vancomycin level drawn this evening does not represent a true trough as patient is not at steady state yet. Since level therapeutic prior to steady state, will reduce vancomycin to 1500 mg IV q8h and obtain a trough level at steady state tomorrow.)
[2021-01-04] MEDS: VANCOMYCIN INJ 1 GM, VANCOMYCIN INJ 500 MG in SODIUM CHLORIDE 0.9% 500 ML IV SCH (18:57)
[2021-01-05] MEDS: AMPICILLIN/SULBACTAM 3 GM in SODIUM CHLORIDE 0.9% MINIBAG 100 ML IV SCH ×3 (00:13→12:45)
[2021-01-05] MEDS: HYDROmorphone 0.5 MG/0.5 ML SYRINGE IVP PRN ×3 (00:22→12:22)
[2021-01-05] MEDS: SODIUM CHLORIDE FLUSH 0.9% 10 ML SYRINGE IVP SCH ×2 (00:23→09:42)
[2021-01-05] MEDS: VANCOMYCIN INJ 1 GM, VANCOMYCIN INJ 500 MG in SODIUM CHLORIDE 0.9% 500 ML IV SCH ×2 (02:49→10:25)
[2021-01-05 05:25] LABS: BASOPHILS % (AUTO) 0.5 %; EOSINOPHILS # (AUTO) 0.2 10^3/uL (0.0-0.7); EOSINOPHILS % (AUTO) 2.9 %; HCT - HEMATOCRIT 34.2 % (42.0-52.0); HGB - HEMOGLOBIN 10.4 g/dL (14.0-18.0); LYMPHOCYTES # (AUTO) 2.6 10^3/uL (1.5-3.5); LYMPHOCYTES % (AUTO) 31.5 %; MEAN CORPUSCULAR HEMOGLOBIN 26.5 pg (27.0-31.0); MEAN CORPUSCULAR HGB CONC 30.4 g/dL (32.0-36.0); MEAN CORPUSCULAR VOLUME 87.2 fL (80.0-94.0); MEAN PLATELET VOLUME 9.5 fL (7.4-11.4); MONOCYTES # (AUTO) 0.6 10^3/uL (0.0-1.0); MONOCYTES % (AUTO) 7.1 %; NEUTROPHILS # (AUTO) 4.8 10^3/uL (1.5-6.6); NEUTROPHILS % (AUTO) 57.5 %; PLT - PLATELET COUNT 266 10^3/uL (130-450); RED BLOOD COUNT 3.92 10^6/uL (4.70-6.10); RED CELL DISTRIBUTION WIDTH 14.2 % (12.0-15.0); WHITE BLOOD COUNT 8.3 x10^3/uL (4.8-10.8)
[2021-01-05 05:38] LABS: CALCIUM 8.1 mg/dL (8.5-10.3); CREATININE 0.8 mg/dL (0.6-1.2); CRP - C-REACTIVE PROTEIN 12.7 mg/dL (0-1.0); POTASSIUM 3.9 mmol/L (3.5-5.0)
[2021-01-05] MEDS: IBUPROFEN 600 MG TABLET PO PRN (09:40)
[2021-01-05] MEDS: ENOXAPARIN 40 MG/0.4 ML SYRINGE SUBQ SCH (09:41)
[2021-01-05] MEDS: SACCHAROMYCES BOULARDII 250 MG CAPSULE PO SCH (09:41)
[2021-01-05] MEDS: FUROSEMIDE 20 MG TABLET PO SCH (09:41)
[2021-01-05 10:15] LABS: VANCOMYCIN,TROUGH 13.6 ug/mL (10.0-20.0)
--- NOTE | 2021-01-05 14:37 | Discharge Plan ---
Discharge Plan Problem Reviewed?: Yes Disposition: Home, Self Care Condition: Fair Prescriptions: cefUROXime axetiL [Ceftin] 500 mg PO Q12H 5 Days #20 tablet Saccharomyces Boulardii [Florastor] 250 mg PO BIDWM 5 Days #10 cap Furosemide [Lasix] 20 mg PO DAILY #30 tablet Diet: Regular Activity Restrictions: Activity as Tolerated Shower Restrictions: No (fall precaution) Instruction Topics: Cellulitis Ch, Cefuroxime tablets, Furosemide tablets, Weight Healthy Ch Health Concerns: cellulitis, obesity Plan of Treatment: Your cellulitis is very good response to treatment in the hospital. oral antibiotics is prescribed for you to finish the treatment course. Lasix is prescribed to reduce your leg swelling. Discussed the care plan about your loss of weight, followup with your PCP and weight loss program, and safely and gradually loss of your weight. Care Goals: Stabilization and improvement of your medical condition Assessment: Discussed the care plan with you, answer your question, you understood Additional Instructions or Follow Up instructions: You may follow-up with your PCP in 1 to 2 weeks. Should your symptoms return or worsen, you may present to ER or call 911 for help No Smoking: If you smoke, Please STOP! Call for help. Follow-up with: Familia Strauss DO [Primary Care Provider] -
--- NOTE | 2021-01-05 14:49 | DISCHARGE SUMMARY ---
Discharge Summary Admit Date: 01/03/21 Discharge Date: 01/05/21 Discharging Provider: Silver Aaron Primary Care Provider: Familia Mera Condition at Discharge: Fair Discharge Disposition: 01 Home, Self Care Discharge Facility Name: home - DIAGNOSES Discharge Diagnoses with Status of Each Condition: (1) Sepsis resolved. At the admission, Patient presented fever, tachycardia, significantly elevated WBC with right lower extremity cellulitis. After treatment, Patient had normal WBC, blood cultures is negative for bacteremia, pt has no fever, Tachycardia is resolved. clinically patient's erythema and swelling at right lower extremity is nearly totally resolved. Patient is prescribed antibiotics to finish treatment course. (2) Lower extremity cellulitis Significantly improved and nearly resolved clinically. clinically patient's erythema and swelling at right lower extremity is nearly totally resolved. Patient had normal WBC, blood cultures is negative for bacteremia, pt has no fever.Patient is prescribed antibiotics to finish treatment course. pt hope to have lower dosage of lasix to help control of his chronic mild edema. (3) Morbid obesity with BMI of 70 and over, adult Discussed with patient for his gradually and safely loss of his weight, followup with his PCP for management. (4) Lymphedema chronic and stable. - HPI History of Present Illness: refer from Dr. Debbie Monique's HPI on 01/03/21 This is a 25-year-old white male with history of morbid obesity (weight > 500 lbs, BMI is 85), who developed Right leg redness and swelling after swimming in a community pool and hot tub. He came to this ER 1 week ago with complaints of 2 days of right leg swelling and redness and was diagnosed with cellulitis and discharged from the ED on Keflex. The area got better and he finished his 5-day course of Keflex. One day later, the redness started spreading again and he has had fever spikes daily as high as 102 F. He presented to the ED again today with the complaint of worsening symptoms and today is found to have elevated white count of 20, is tachycardic with a heart rate of 120, has normal lactic acid level and normal blood pressure. He is being admitted for management of worsening cellulitis, failing outpatient Keflex oral therapy. He received Unasyn IV and vancomycin IV in the ED. - HOSPITAL COURSE Hospital Course: pt was admitted for Right leg redness and swelling after swimming in a community pool and hot tub. Patient was found to have cellulitis on his right lower extremity. After the patient was treated with intravenous antibiotics, clinically patient's cellulitis was almost resolved.His right lower extremity erythema and swelling is almost resolved. After treatment, Patient had normal WBC, blood cultures is negative for bacteremia, pt has no fever, Tachycardia is resolved. Patient is prescribed oral antibiotics for d/c home To finish the treatment course. - ALLERGIES Allergies/Adverse Reactions: Allergies Allergy/AdvReac Type Severity Reaction Status Date / Time malena seeds Allergy Anaphylaxis Uncoded 01/03/21 18:50 - MEDICATIONS Home Medications: Ambulatory Orders Medication Instructions Recorded Confirmed Furosemide [Lasix] 20 mg PO DAILY #30 tablet 01/05/21 Saccharomyces Boulardii [Florastor] 250 mg PO BIDWM 5 Days #10 cap 01/05/21 cefUROXime axetiL [Ceftin] 500 mg PO Q12H 5 Days #20 tablet 01/05/21 - PHYSICAL EXAM AT DISCHARGE General Appearance: positive: No acute distress, Alert. negative: Lethargic Eyes Bilateral: positive: Normal inspection, PERRL, No lid inflammation ENT: positive: ENT inspection nml, No signs of dehydration. negative: Purulent nasal drainage Neck: positive: Nml inspection, Trachea midline. negative: Tracheal deviation Respiratory: positive: Chest non-tender, No respiratory distress. negative: Wheezes Cardiovascular: positive: Regular rate & rhythm, No murmur. negative: Tachycardia, Bradycardia, Systolic murmur Peripheral Pulses: positive: 2+ Abdomen: positive: Non-tender, Nml bowel sounds. negative: Tenderness Back: positive: Nml inspection Skin: positive: Color nml, Warm, Dry. negative: Cyanosis Extremities: positive: Non-tender, Full ROM, Other (Right lower extremity erythema, warmth, swelling are nearly normal appearance. ). negative: Calf tenderness Neurologic/Psychiatric: positive: Oriented x3, Motor nml, Sensation nml, Mood/affect nml. negative: Weakness, Sensory loss, Facial droop, Slurred/abnml speech - LABS Result Diagrams: 01/05/21 04:52 01/05/21 04:52 - SEPSIS Current Stage of Sepsis: Sepsis Possible source of Sepsis: Skin/soft tissue Sepsis Criteria: Recorded Temperature greater than 38.3C or Less than 36C, Recorded Heart Rate greater than 90 bpm, WBC count greater than 12,000 or less than 4000 - FOLLOW UP Follow Up: Your cellulitis is very good response to treatment in the hospital. oral antibiotics is prescribed for you to finish the treatment course. Lasix is prescribed to reduce your leg swelling. Discussed the care plan about your loss of weight, followup with your PCP and weight loss program, and safely and gradually loss of your weight. You may follow-up with your PCP in 1 to 2 weeks. Should your symptoms return or worsen, you may present to ER or call 911 for help - TIME SPENT Time Spent in Discharge (Minutes): 30
[2021-01-05 15:57] VITALS: BP 123/69
== END 2021-01-05 16:20 | disposition home or self-care (01) | DRG 872 ==
LOC: ED 18:36 → MS3 21:11
PROVIDERS: ADMIT Internal Medicine; ATTEND Nurse Practitioner Gerontology
DX: A41.9 Sepsis, unspecified organism (principal); L03.115 Cellulitis of right lower limb; Z68.45 Body mass index [BMI] 70 or greater, adult; E66.01 Morbid (severe) obesity due to excess calories; I89.0 Lymphedema, not elsewhere classified; Z20.822 Contact with and (suspected) exposure to COVID-19
CPT/HCPCS: 0202U; 36415; 80048; 80053; 80202; 81003; 83036; 83605; 83690; 85025; 85610; 85651; 85730; 86140; 87040; 93306; A9270; J1170; J1650; J3370; Q9957; 81001; 87086; 99284; 99285

== ENCOUNTER 2022-11-24 23:55 | Emergency (ER) | payer BC ==
--- NOTE | 2022-11-25 00:22 | ED Physician Documentation ---
History of Present Illness - Stated complaint Stated Complaint: SOB/HEART RATE - Chief complaint Chief Complaint: Cardiac - History obtained from History obtained from: Patient - Additonal information Additional information: HPI from patient. Patient c/o midline anterior chest pain, rapid palpitations, mild dyspnea. These symptoms started tonight without inciting event. Partially ameliorated with ly ing supine or standing, but worse with sitting. He also notes left upper quadrant pain and tenderness over past few days, episodic without inciting/exacerbating/ameliorating factors. BLE swelling but symmetric and not new. Denies h/o similar symptoms Review of Systems Constitutional: denies: Fever, Chills, Sweats Cardiac: reports: Chest pain / pressure, Palpitations, Pedal edema. denies: Calf pain Respiratory: reports: Dyspnea. denies: Cough, Wheezing GI: reports: Abdominal Pain. denies: Abdominal Swelling, Nausea, Vomiting PD PAST MEDICAL HISTORY - Past Medical History Cardiovascular: None Respiratory: None Neuro: None Endocrine/Autoimmune: None GI: None : None Psych: Depression, Anxiety, Panic attacks Musculoskeletal: Other (markedly obese) Derm: Other (Leg edema for years, treated with Lasix until it ran out and he has not had a PCP for 2 years.) - Past Surgical History Past Surgical History: No - Present Medications Home Medications: Ambulatory Orders Medication Instructions Recorded Confirmed Furosemide [Lasix] 20 mg PO DAILY #30 tablet 01/05/21 Saccharomyces Boulardii [Florastor] 250 mg PO BIDWM 5 Days #10 cap 01/05/21 cefUROXime axetiL [Ceftin] 500 mg PO Q12H 5 Days #20 tablet 01/05/21 - Allergies Allergies/Adverse Reactions: Allergies Allergy/AdvReac Type Severity Reaction Status Date / Time malena seeds Allergy Anaphylaxis Uncoded 11/25/22 00:19 - Social History Does the pt smoke?: No Smoking Status: Never smoker Does the pt drink ETOH?: No Does the pt have substance abuse?: No - Immunizations Immunizations are current?: Yes - POLST Patient has POLST: No PD ED PE NORMAL - Vitals Vital signs reviewed: Yes - General General: Alert and oriented X 3, No acute distress, Well developed/nourished - Cardiac Cardiac: No murmur - Respiratory Respiratory: No respiratory distress, Clear bilaterally - Abdomen Abdomen: Soft, Non distended, Other (LUQ TTP without rebound or guarding) - Derm Derm: Normal color, Warm and dry PD ED PE EXPANDED - Cardiac Cardiac: Tachy, Regular Rhythm - Extremities Extremities: Pedal edema bilateral Results - Vitals Vitals: Oxygen O2 Source Room air - EKG (time done) No standard instances EKG releavant findings:: EKG personally interpreted by author of this note. Relevant findings are: Rate: Rate (enter#) (121) Rhythm: Sinus tachycardia [place]: Normal Intervals: Normal SD QRS: Normal Ischemia: Normal ST segments - Labs Labs: Laboratory Tests 11/25/22 11/25/22 11/25/22 01:03 01:03 01:03 WBC 9.5 RBC 4.29 L Hgb 11.9 L Hct 36.9 L MCV 86.0 MCH 27.7 MCHC 32.2 RDW 13.9 Plt Count 268 MPV 9.3 Neut # (Auto) 6.0 Lymph # (Auto) 2.6 [place] # (Auto) 0.6 Eos # (Auto) 0.2 Baso # (Auto) 0.1 Absolute Nucleated RBC 0.00 Nucleated RBC % 0.0 Sodium 136 Potassium 3.8 Chloride 102 Carbon Dioxide 25 Anion Gap 9.0 BUN 18 Creatinine 0.9 Estimated GFR (MDRD) 100 Glucose 163 H Calcium 8.3 L Total Bilirubin 0.5 AST 22 ALT 29 Alkaline Phosphatase 31 L Troponin I High Sens < 2.3 L Total Protein 6.8 Albumin 3.1 L Globulin 3.7 Albumin/Globulin Ratio 0.8 L Lipase 29 - Rads (name of study) CTA chest Relevant Findings:: Prelim report reviewed, See rad report CT A/P with IV contrast Relevant Findings:: Prelim report reviewed, See rad report PD Medical Decision Making - ED course Complexity details: reviewed results, re-evaluated patient, considered differential, d/w patient ED course: No concerning nor diagnostic findings on tonight's tests, including blood tests and CTA chest, CT A/P. EKG reflects sinus tachycardia which is also noted on monitor. During ED stay/observation, while awaiting results, tachycardia gradually improved and eventually resolved without specific intervention. Cause of patient's symptoms is not apparent at this time. No evidence of PE, aortic dissection, abdominal pathology (such as colitis, diverticulitis). Would consider PUD, gastritis still on differential given location of the abdominal discomfort. Results d/w patient, return precautions discussed. Departure - Departure Disposition: 01 Home, Self Care Clinical Impression: Hepatic steatosis Chest pain Qualifiers: Chest pain type: unspecified Qualified Code(s): R07.9 - Chest pain, unspecified Abdominal pain Qualifiers: Abdominal location: left upper quadrant Qualified Code(s): R10.12 - Left upper quadrant pain Condition: Good Instructions: ED Chest Pain Atypical Unkn Cause, ED Abdominal Pain Unkn Cause Male Comments: There were no concerning or diagnostic findings on tonight's tests. Your blood sugar was mildly elevated (163). There were no abnormalities on the CT scan of the chest. There were no acute abnormalities on the CT of the abdomen; as we discussed, the only finding on the abdominal CT, which is an incidental finding (would not cause symptoms) is hepatic steatosis. Hepatic steatosis is an abnormally large amount of adipose or fat tissue within the liver. Sometimes, a cause can be determined that is causing this, and other times it is unclear what is causing hepatic steatosis. You should mention this finding to your primary care provider the next time you see them, but it is not cause for alarm nor immediate concern. The cause of your symptoms (the chest pain, fast heart rate, and abdominal pain) is not apparent at this time. Follow-up with your primary care provider for reevaluation. If your symptoms persist or are recurrent, further testing might be indicated such as an upper endoscopy. Discharge Date/Time: 11/25/22 05:07
[2022-11-25 01:08] LABS: BASOPHILS # (AUTO) 0.1 10^3/uL (0.0-0.1); BASOPHILS % (AUTO) 0.6 %; EOSINOPHILS # (AUTO) 0.2 10^3/uL (0.0-0.7); HCT - HEMATOCRIT 36.9 % (42.0-52.0); HGB - HEMOGLOBIN 11.9 g/dL (14.0-18.0); LYMPHOCYTES # (AUTO) 2.6 10^3/uL (1.5-3.5); MEAN CORPUSCULAR HEMOGLOBIN 27.7 pg (27.0-31.0); MEAN CORPUSCULAR HGB CONC 32.2 g/dL (32.0-36.0); MEAN PLATELET VOLUME 9.3 fL (7.4-11.4); MONOCYTES # (AUTO) 0.6 10^3/uL (0.0-1.0); MONOCYTES % (AUTO) 6.3 %; NEUTROPHILS % (AUTO) 63.8 %; PLT - PLATELET COUNT 268 10^3/uL (130-450); RED BLOOD COUNT 4.29 10^6/uL (4.70-6.10); RED CELL DISTRIBUTION WIDTH 13.9 % (12.0-15.0); WHITE BLOOD COUNT 9.5 x10^3/uL (4.8-10.8)
[2022-11-25 01:22] LABS: ALBUMIN 3.1 g/dL (3.2-5.5); ALBUMIN/GLOBULIN RATIO 0.8 (1.0-2.2); BILIRUBIN,TOTAL 0.5 mg/dL (0.2-1.0); CALCIUM 8.3 mg/dL (8.5-10.3); CREATININE 0.9 mg/dL (0.6-1.2); POTASSIUM 3.8 mmol/L (3.5-5.0); TOTAL PROTEIN 6.8 g/dL (6.7-8.2)
[2022-11-25] MEDS ORDERED: iohexoL-300 100 ML VIAL ONE (01:33)
[2022-11-25] MEDS ORDERED: iohexoL-300 100 ML VIAL IVP ONE (02:08)
[2022-11-25 05:09] VITALS: BP 104/76
--- NOTE | 2022-11-25 10:11 | CT Report ---
PROCEDURE: ANGIO CHEST W/WO INDICATIONS: chest pain, palpitations, tachycardia CONTRAST: 100 ML OMNI 300 TECHNIQUE: After the administration of intravenous contrast, 2 mm axial images were acquired from the pulmonary apices to the posterior costophrenic angles during the arterial phase. In addition, 1 mm lung kernel and 5 mm soft tissue kernel reconstructions were performed. 3-dimensional coronal oblique maximum int ensity projection (MIP) reformats, 8 mm axial MIP, and 5 mm coronal and sagittal MPR reformats were t hen performed through the thorax. For radiation dose reduction, the following was used: automated exp osure control, adjustment of mA and/or kV according to patient size. COMPARISON: FINDINGS: Image quality: Excellent. Large vessels: No filling defects within the opacified pulmonary arteries, accounting for motion and contrast timing. No evidence of acute aortic syndrome or aortic aneurysm. Lungs and pleura: No consolidation. No pleural effusions. No pneumothorax. No suspicious pulmonary n odules which require follow up. Mediastinum: Heart size is normal. No pericardial effusion. No large vessel abnormality. No mediastin al adenopathy by size criteria. Chest wall and lower neck: Thyroid is unremarkable. No axillary or supraclavicular adenopathy by size . Bones: No aggressive osseous abnormality. Upper Abdomen: Unremarkable. IMPRESSION: 1. No pulmonary embolism. 2. No acute abnormality of the chest. Findings are concordant with preliminary interpretation provided by [facility]. Reviewed by: Anders Sherman on 11/25/2022 9:10 AM JULIET Approved by: Anders Sherman on 11/25/2022 9:10 AM JULIET Station ID: [id number]
--- NOTE | 2022-11-25 10:14 | CT Report ---
PROCEDURE: ABDOMEN/PELVIS W INDICATIONS: LUQ pain, tenderness CONTRAST: 100 ML OMNI 300 TECHNIQUE: After the administration of contrast, 5 mm thick sections acquired from the diaphragms to the symphys is. 5 mm thick coronal and sagittal reformats were acquired. For radiation dose reduction, the foll owing was used: automated exposure control, adjustment of mA and/or kV according to patient size. COMPARISON: None FINDINGS: Image quality: Excellent. Lung bases and heart: Unremarkable. Liver: No solid mass. Gallbladder and biliary tree: Spleen: No splenomegaly. Pancreas: No pancreatic ductal dilation. Adrenals: No adrenal nodule. Kidneys and ureters: No hydronephrosis. No renal cystic lesion which requires follow up. No solid mas s. Bowel and peritoneum: No bowel distension. No pathologic free fluid. Lymph nodes: No central or retroperitoneal adenopathy. Vessels: No infrarenal aortic aneurysm. PELVIS Reproductive organs: Unremarkable. Bladder: No abnormal wall thickening, accounting for underdistension. Pelvic lymph nodes: No pelvic adenopathy by size criteria. Bones: No aggressive osseous abnormality. Other: No significant ventral or inguinal hernia. IMPRESSION: 1. No pulmonary embolism. 2. No acute abnormality of the chest. Findings are concordant with preliminary interpretation provided by [facility]. Reviewed by: Anders Sherman on 11/25/2022 9:12 AM JULIET Approved by: Anders Sherman on 11/25/2022 9:12 AM JULIET Station ID: [id number]
== END 2022-11-25 05:07 | disposition home or self-care (01) ==
LOC: ED 23:55
DX: K76.0 Fatty (change of) liver, not elsewhere classified (principal); R07.9 Chest pain, unspecified; R10.12 Left upper quadrant pain
CPT/HCPCS: 36415; 71275; 74177; 80053; 83690; 84484; 85025; 93005; 99283; 99284; Q9967

== ENCOUNTER 2023-08-16 15:30 | Emergency (ER) | payer BC ==
--- NOTE | 2023-08-16 16:10 | XRAY Report ---
PROCEDURE: Chest 1V INDICATIONS: Chest pain TECHNIQUE: One view of the chest was acquired. COMPARISON: None. FINDINGS: Surgical changes and devices: None. Lungs and pleura: Right basilar consolidation. Mediastinum: Mediastinal contours appear normal. Heart size is normal. Bones and chest wall: No suspicious bony lesions. Overlying soft tissues appear unremarkable. IMPRESSION: Right basilar consolidation, concerning for pneumonia. Reviewed by: Patrice Jaime MD on 08/16/2023 4:09 PM PDT Approved by: Patrice Jaime MD on 08/16/2023 4:09 PM PDT Station ID: [id number]
[2023-08-16 16:16] LABS: BASOPHILS % (AUTO) 0.5 %; EOSINOPHILS # (AUTO) 0.3 10^3/uL (0.0-0.7); EOSINOPHILS % (AUTO) 3.9 %; HCT - HEMATOCRIT 38.5 % (42.0-52.0); HGB - HEMOGLOBIN 12.1 g/dL (14.0-18.0); LYMPHOCYTES # (AUTO) 1.1 10^3/uL (1.5-3.5); LYMPHOCYTES % (AUTO) 17.1 %; MEAN CORPUSCULAR HEMOGLOBIN 27.8 pg (27.0-31.0); MEAN CORPUSCULAR HGB CONC 31.4 g/dL (32.0-36.0); MEAN CORPUSCULAR VOLUME 88.3 fL (80.0-94.0); MEAN PLATELET VOLUME 9.1 fL (7.4-11.4); MONOCYTES # (AUTO) 0.7 10^3/uL (0.0-1.0); MONOCYTES % (AUTO) 10.2 %; NEUTROPHILS # (AUTO) 4.5 10^3/uL (1.5-6.6); PLT - PLATELET COUNT 220 10^3/uL (130-450); RED BLOOD COUNT 4.36 10^6/uL (4.70-6.10); WHITE BLOOD COUNT 6.7 x10^3/uL (4.8-10.8)
[2023-08-16 16:32] LABS: ALBUMIN 3.9 g/dL (3.2-5.5); ALBUMIN/GLOBULIN RATIO 1.1 (1.0-2.2); BILIRUBIN,TOTAL 0.8 mg/dL (0.2-1.0); CREATININE 0.8 mg/dL (0.6-1.3); POTASSIUM 3.9 mmol/L (3.5-4.5); TOTAL PROTEIN 7.5 g/dL (6.4-8.9)
[2023-08-16 16:35] LABS: TROPONIN I HIGH SENSITIVITY 2.8 ng/L (2.3-19.7)
--- NOTE | 2023-08-16 16:40 | ED Physician Documentation ---
History of Present Illness - Stated complaint Stated Complaint: SOA,WHEEZING - Chief complaint Chief Complaint: Resp - History obtained from History obtained from: Patient - Additonal information Additional information: The patient comes to the emergency department chief complaint of wheezing and shortness of breath over the last couple days. He is also had a cough. The patient denies fevers or chills. He has chronic lower extremity edema which she states is not worse than usual. He has no history of asthma or smoking though he does occasionally vape. He has obstructive sleep apnea. He uses a BiPAP machine at night and states the coughing has been keeping him up and that he could not sleep overnight. PD PAST MEDICAL HISTORY - Past Medical History Past Medical History: Yes Cardiovascular: None Respiratory: None Neuro: None Endocrine/Autoimmune: None GI: None : None Psych: Depression, Anxiety, Panic attacks Musculoskeletal: Other Derm: Other - Past Surgical History Past Surgical History: No - Present Medications Home Medications: Ambulatory Orders Medication Instructions Recorded Confirmed Furosemide [Lasix] 20 mg PO DAILY #30 tablet 01/05/21 Saccharomyces Boulardii [Florastor] 250 mg PO BIDWM 5 Days #10 cap 01/05/21 cefuroxime axetiL [Ceftin] 500 mg PO Q12H 5 Days #20 tablet 01/05/21 Albuterol Sulf [Ventolin Hfa 1 - 2 puffs INH Q4HR PRN #1 each 08/16/23 Inhaler] Azithromycin [Zithromax] 0 mg PO DAILY #6 tablet 08/16/23 Escitalopram [Lexapro] 10 mg PO DAILY 08/16/23 08/16/23 predniSONE [Deltasone] 10 mg PO [id number] #42 tab 08/16/23 - Allergies Allergies/Adverse Reactions: Allergies Allergy/AdvReac Type Severity Reaction Status Date / Time kiwi Allergy Anaphylaxis Verified 08/16/23 15:52 malena seeds Allergy Anaphylaxis Uncoded 11/25/22 00:19 - Social History Does the pt smoke?: No Smoking Status: Never smoker Does the pt drink ETOH?: No Does the pt have substance abuse?: No - Immunizations Immunizations are current?: Yes - POLST Patient has POLST: No PD ED PE NORMAL - Vitals Vital signs reviewed: Yes - General General: Alert and oriented X 3, No acute distress, Well developed/nourished - HEENT HEENT: Atraumatic, PERRL, EOMI, Moist mucous membranes - Neck Neck: Supple, no meningeal sign - Cardiac Cardiac: No murmur, Other (Regular but mildly tachycardic rate) - Respiratory Respiratory: No respiratory distress, Other (Scant bilateral expiratory wheezes, occasional rhonchi, no rales. Good air movement throughout bilateral lung batista. Repetitive dry cough.) - Abdomen Abdomen: Soft, Non tender, Non distended - Derm Derm: Warm and dry, No rash, Other (Mild erythema bilateral lower extremities distally.) - Extremities Extremities: No deformity, Other (Lymphedema bilateral lower extremities.) - Neuro Neuro: Alert and oriented X 3 - Psych Psych: Normal mood, Normal affect Results - Vitals Vitals: Oxygen O2 Source Room air - Labs Labs: Laboratory Tests 08/16/23 08/16/23 08/16/23 16:00 16:10 16:10 WBC 6.7 RBC 4.36 L Hgb 12.1 L Hct 38.5 L MCV 88.3 MCH 27.8 MCHC 31.4 L RDW 14.0 Plt Count 220 MPV 9.1 Neut # (Auto) 4.5 Lymph # (Auto) 1.1 L Ashley # (Auto) 0.7 Eos # (Auto) 0.3 Baso # (Auto) 0.0 Absolute Nucleated RBC 0.00 Nucleated RBC % 0.0 Sodium 134 L Potassium 3.9 Chloride 100 L Carbon Dioxide 27 Anion Gap 7.0 BUN 14 Creatinine 0.8 Estimated GFR (MDRD) 114 Glucose 111 H Calcium 9.0 Total Bilirubin 0.8 AST 17 ALT 20 Alkaline Phosphatase 31 L Troponin I High Sens 2.8 Total Protein 7.5 Albumin 3.9 Globulin 3.6 Albumin/Globulin Ratio 1.1 Lipase 23 Nasal Adenovirus (PCR) NOT DETECTED Nasal B. parapertussis DNA (PCR) NOT DETECTED Nasal Coronavir 229E PCR NOT DETECTED Nasal Coronavir HKU1 PCR NOT DETECTED Nasal Coronavir NL63 PCR NOT DETECTED Nasal Coronavir OC43 PCR NOT DETECTED Nasal Enterovir/Rhinovir PCR NOT DETECTED Nasal Influenza B PCR NOT DETECTED Nasal Influenza A PCR NOT DETECTED Nasal Parainfluen 1 PCR NOT DETECTED Nasal Parainfluen 2 PCR NOT DETECTED Nasal Parainfluen 3 PCR NOT DETECTED Nasal Parainfluen 4 PCR NOT DETECTED Nasal RSV (PCR) DETECTED A Nasal B.pertussis DNA PCR NOT DETECTED Nasal C.pneumoniae (PCR) NOT DETECTED Sunil Human Metapneumo PCR NOT DETECTED Nasal M.pneumoniae (PCR) NOT DETECTED Nasal SARS-CoV-2 (PCR) NOT DETECTED PD Medical Decision Making - ED course Complexity details: reviewed results, re-evaluated patient, considered differential, d/w patient ED course: The patient was worked up with EKG, x-ray, and labs, and treated initially with a DuoNeb and IV Decadron. He was found to have a right lower lobe infiltrate on x-ray, and was treated with Rocephin and Zithromax for this, and was also positive for RSV on PCR panel. Labs were unremarkable. The pt on re-evaluation was feeling better and his lungs were completely clear. Sats were mid-90's on RA. He preferred to be discharged home, and I have prescribed antibiotics, an inhaler and steroids. We have discussed the usual indications for return. Departure - Departure Disposition: 01 Home, Self Care Clinical Impression: RSV infection Pneumonia Qualifiers: Pneumonia type: due to unspecified organism Laterality: right Lung location: lower lobe of lung Qualified Code(s): J18.9 - Pneumonia, unspecified organism Condition: Stable Instructions: ED Pneumonia Adult, ED Viral Syndrome Prescriptions: Albuterol Sulf [Ventolin Hfa Inhaler] 1 - 2 puffs INH Q4HR PRN #1 each PRN Reason: Shortness Of Air/Wheezing predniSONE [Deltasone] 10 mg PO [id number] #42 tab Azithromycin [Zithromax] 0 mg PO DAILY #6 tablet Comments: Your lungs sound much better after a breathing treatment and some steroids. In fact, they are completely clear now. Your x-ray does show a small area of pneumonia in the lower regions of your right lung and for this you have been started on antibiotics. You have been given an IV dose here as well as an oral dose of another antibiotic. Your viral panel was positive for RSV, a common upper respiratory virus. This should be expected to pass on its own, given several days to a couple of weeks. A prescription for your antibiotics as well as the rest of your steroid taper has been electronically transmitted to the [facility] here in [place]. The prescription for your inhaler has been electronically transmitted to the [facility] pharmacy in [place] so that you can pick it up tonight and have it on hand if needed. You will not need another dose of steroid or antibiotic until tomorrow. Please use your BiPAP and sleep sitting up as needed. If you feel you are really struggling again and the inhaler is not cutting it, please don't hesitate to return to the emergency department. Forms: PCP List Discharge Date/Time: 08/16/23 18:57
[2023-08-16 17:02] LABS: B. PARAPERTUSSIS- RESP PCR PAN NOT DETECTED; B. PERTUSSIS- RESP PCR PANEL NOT DETECTED; C. PNEUMONIAE- RESP PCR PANEL NOT DETECTED; CORONAVIRUS 229E-RESP PCR NOT DETECTED; CORONAVIRUS HKU1-RESP PCR NOT DETECTED; CORONAVIRUS NL63-RESP PCR NOT DETECTED; CORONAVIRUS OC43-RESP PCR NOT DETECTED; HUMAN METAPNEUMOVIRUS NOT DETECTED; INFLUENZA A- RESP PCR PANEL NOT DETECTED; INFLUENZA B - RESP PCR PANEL NOT DETECTED; M. PNEUMONIAE- RESP PCR PANEL NOT DETECTED; PARAINFLUENZA VIRUS 1 NOT DETECTED; PARAINFLUENZA VIRUS 2 NOT DETECTED; PARAINFLUENZA VIRUS 3 NOT DETECTED; PARAINFLUENZA VIRUS 4 NOT DETECTED; RHINOVIRUS/ENTEROVIRUS NOT DETECTED; RSV- RESP PCR PANEL DETECTED; SARS-CoV-2 -RESP PCR PANEL NOT DETECTED
[2023-08-16] MEDS: AZITHROMYCIN 250 MG TABLET PO STA (17:06)
[2023-08-16] MEDS: DEXAMETHASONE 10 MG/ML VIAL IV STA (17:06)
[2023-08-16] MEDS: IPRATROPIUM/ALBUTEROL 3 ML NEB INH STA (17:12)
[2023-08-16] MEDS: cefTRIAXone 2 GM in SODIUM CHLORIDE 0.9% MINIBAG 100 ML IV STA (17:30)
[2023-08-16 18:57] VITALS: BP 134/71; O2SAT 96
== END 2023-08-16 18:57 | disposition home or self-care (01) ==
LOC: ED 15:30
DX: J18.9 Pneumonia, unspecified organism (principal); B33.8 Other specified viral diseases
CPT/HCPCS: 36415; 71045; 80053; 83690; 84484; 85025; 87633; 93005; 94640; 96365; 96375; 99284; A9270

== ENCOUNTER 2024-01-22 15:02 | Emergency (ER) | payer BC ==
--- NOTE | 2024-01-22 15:07 | ED Physician Documentation ---
History of Present Illness - Stated complaint Stated Complaint: MED REFILL - Chief complaint Chief Complaint: General - History obtained from History obtained from: Patient - History of Present Illness Timing: Today Pain level max: 0 Pain level now: 0 - Additonal information Additional information: 28 year old male out of his lexapro. Unable to get a refill as he is in between providers. Has appt with new provider in february. No other complaints. Review of Systems Psychiatric: denies: Suicidal, Homicidal PD PAST MEDICAL HISTORY - Past Medical History Cardiovascular: None Respiratory: None Neuro: None Endocrine/Autoimmune: None GI: None : None Psych: Depression, Anxiety, Panic attacks Musculoskeletal: Other Derm: Other - Past Surgical History Past Surgical History: No - Present Medications Home Medications: Ambulatory Orders Medication Instructions Recorded Confirmed Furosemide [Lasix] 20 mg PO DAILY #30 tablet 01/05/21 Saccharomyces Boulardii [Florastor] 250 mg PO BIDWM 5 Days #10 cap 01/05/21 cefuroxime axetiL [Ceftin] 500 mg PO Q12H 5 Days #20 tablet 01/05/21 Albuterol Sulf [Ventolin Hfa 1 - 2 puffs INH Q4HR PRN #1 each 08/16/23 Inhaler] Azithromycin [Zithromax] 0 mg PO DAILY #6 tablet 08/16/23 Escitalopram [Lexapro] 10 mg PO DAILY 08/16/23 08/16/23 predniSONE [Deltasone] 10 mg PO [id number] #42 tab 08/16/23 Escitalopram [Lexapro] 10 mg PO DAILY #30 tablet 01/22/24 - Allergies Allergies/Adverse Reactions: Allergies Allergy/AdvReac Type Severity Reaction Status Date / Time kiwi Allergy Anaphylaxis Verified 01/22/24 15:11 malena seeds Allergy Anaphylaxis Uncoded 01/22/24 15:11 - Social History Does the pt smoke?: No Smoking Status: Never smoker Does the pt drink ETOH?: No Does the pt have substance abuse?: No - Immunizations Immunizations are current?: Yes - POLST Patient has POLST: No PD ED PE NORMAL - Vitals Vital signs reviewed: Yes - General General: Alert and oriented X 3, No acute distress - HEENT HEENT: Moist mucous membranes - Respiratory Respiratory: No respiratory distress - Derm Derm: Warm and dry - Neuro Neuro: Alert and oriented X 3 - Psych Psych: Normal mood, Normal affect Results - Vitals Vitals: Vital Signs - 24 hr 01/22/24 15:11 Temperature 36.5 C Heart Rate 90 Respiratory 16 Rate Blood Pressure 146/80 H O2 Saturation 98 Oxygen O2 Source Room air PD Medical Decision Making - ED course Complexity details: considered differential, d/w patient ED course: Patient out of lexapro. Will refill for 1 month and then patient will follow up with new provider. Departure - Departure Disposition: 01 Home, Self Care Clinical Impression: Medication refill Condition: Good Follow-Up: your,doctor in 1 week [Other] Prescriptions: Escitalopram [Lexapro] 10 mg PO DAILY #30 tablet Comments: Your prescription was sent to the [facility] pharmacy. Please return if you worsen. Forms: PCP List
[2024-01-22 15:23] VITALS: BP 146/80; O2SAT 98
== END 2024-01-22 15:15 | disposition home or self-care (01) ==
LOC: ED 15:02
DX: Z76.0 Encounter for issue of repeat prescription (principal); F32.A Depression, unspecified; F41.9 Anxiety disorder, unspecified
CPT/HCPCS: 99281; 99282

== ENCOUNTER 2024-02-18 08:02 | Emergency (ER) | payer OTHER, BC ==
--- NOTE | 2024-02-18 08:16 | ED Physician Documentation ---
PD HPI BACK PAIN - Stated complaint Stated Complaint: BACK PAIN - Chief complaint Chief Complaint: Back Pain - History obtained from History obtained from: Patient - Additional information Additional information: He developed back pain while twisting yesterday. Now has pain in the low lumbar spine and with some numbness in both legs. No saddle anesthesia or incontinence. No fevers. PD PAST MEDICAL HISTORY - Past Medical History Cardiovascular: None Respiratory: None Neuro: None Endocrine/Autoimmune: None GI: None : None Psych: Depression, Anxiety, Panic attacks Musculoskeletal: Other Derm: Other - Past Surgical History Past Surgical History: No - Present Medications Home Medications: Ambulatory Orders Medication Instructions Recorded Confirmed Furosemide [Lasix] 20 mg PO DAILY #30 tablet 01/05/21 Saccharomyces Boulardii [Florastor] 250 mg PO BIDWM 5 Days #10 cap 01/05/21 cefuroxime axetiL [Ceftin] 500 mg PO Q12H 5 Days #20 tablet 01/05/21 Albuterol Sulf [Ventolin Hfa 1 - 2 puffs INH Q4HR PRN #1 each 08/16/23 Inhaler] Azithromycin [Zithromax] 0 mg PO DAILY #6 tablet 08/16/23 Escitalopram [Lexapro] 10 mg PO DAILY 08/16/23 08/16/23 predniSONE [Deltasone] 10 mg PO [id number] #42 tab 08/16/23 Escitalopram [Lexapro] 10 mg PO DAILY #30 tablet 01/22/24 Cyclobenzaprine [Flexeril] 10 mg PO TID PRN #20 tablet 02/18/24 predniSONE [Deltasone] 20 mg PO [id number] #21 tab 02/18/24 - Allergies Allergies/Adverse Reactions: Allergies Allergy/AdvReac Type Severity Reaction Status Date / Time kiwi Allergy Anaphylaxis Verified 02/18/24 08:10 malena seeds Allergy Anaphylaxis Uncoded 02/18/24 08:10 - Social History Does the pt smoke?: No Smoking Status: Never smoker Does the pt drink ETOH?: No Does the pt have substance abuse?: No - Immunizations Immunizations are current?: Yes - POLST Patient has POLST: No PD ED PE NORMAL - Vitals Vital signs reviewed: Yes - General General: Alert and oriented X 3 - Back Back: No spinal TTP - Extremities Extremities: Other (The patient has equal and normal Achilles and patellar reflexes bilaterally. Normal sensation in all areas of the legs. Patient denies saddle anesthesia. Normal strength in flexion-extension at the ankles, knees, and flexion of the hips.) - Neuro Neuro: Alert and oriented X 3, Normal speech Results - Vitals Vitals: Vital Signs - 24 hr 02/18/24 08:10 Temperature 36.5 C Heart Rate 85 Respiratory 22 Rate Blood Pressure 170/106 H O2 Saturation 97 Oxygen O2 Source Room air PD Medical Decision Making - ED course ED course: This patient has seemingly uncomplicated musculoskeletal back pain. The patient has no "red flags." Specifically denies IV drug use, fevers, incontinence, saddle anesthesia. Spinal epidural abscess was considered, given that the patient has no fever, is not diabetic, has no spinal tenderness, does not use IV drugs, and has no bilateral neurologic symptoms, the diagnosis of spinal epidural abscess is considered exceedingly unlikely. Departure - Departure Disposition: Home, Self Care Clinical Impression: Back pain Qualifiers: Back pain location: low back pain Chronicity: acute Back pain laterality: midline Sciatica presence: unspecified whether sciatica present Qualified Code(s): M54.50 - Low back pain, unspecified Condition: Good Record reviewed to determine appropriate education?: Yes Instructions: ED Low Back Pain Injury Prescriptions: predniSONE [Deltasone] 20 mg PO [id number] #21 tab Cyclobenzaprine [Flexeril] 10 mg PO TID PRN #20 tablet PRN Reason: Spasms Comments: I sent your prescriptions electronically to the [facility] pharmacy at the corner of [address] [facility] in [place]. Based on your description and physical examination it is unlikely that this pain represents anything acutely serious such as an infection or vascular issue. Follow-up with your doctor with consideration for physical therapy if not better in a week or 2 and consideration for an MRI if not better in a month or 2. In addition to the prescribed medications you can take 800 mg of ibuprofen every 6 hours for pain. You can use heat and gentle stretching. Call your doctor to arrange a follow-up appointment, make the next available appointment. In the interim, return anytime if worse or if new symptoms develop. Your blood pressure was elevated today on check into the emergency department. This does not mean that you have hypertension, it is a common phenomenon to come to the emergency department and have elevated blood pressure. I recommend that you see your primary care physician within the week to have it rechecked when you are feeling better. Forms: Activity restrictions
[2024-02-18 08:19] VITALS: BP 170/106; O2SAT 97
== END 2024-02-18 08:32 | disposition home or self-care (01) ==
LOC: ED 08:02
DX: M54.50 Low back pain, unspecified (principal); R20.0 Anesthesia of skin; X50.1XXA Overexertion from prolonged static or awkward postures, initial encounter
CPT/HCPCS: 99282; 99283